=== PATIENT | male | born 1975 | race Caucasian/White ===

== ENCOUNTER 2020-07-27 19:17 | Emergency (ER) | payer OTHER ==
[2020-07-27 19:39] VITALS: BP 122/86; PULSE 110; TEMP 98.5; BMI 28.2
[2020-07-27] MEDS ORDERED: ACETAMINOPHEN 325 MG TABLET (FP) PO ONE (20:46)
[2020-07-27] MEDS ORDERED: ACETAMINOPHEN 325 MG TABLET (FP) ONE (21:01)
[2020-07-27] MEDS ORDERED: METHOCARBAMOL 500 MG TABLET PO ONE (21:53)
[2020-07-27] MEDS ORDERED: KETOROLAC TROMETHAMINE 30 MG/1 ML VIAL IM ONE (21:59)
[2020-07-27] MEDS ORDERED: KETOROLAC TROMETHAMINE 60 MG/2 ML VIAL IM ONE (21:59)
[2020-07-27] MEDS ORDERED: DIPHTH,PERTUSS(ACELL),TET 0.5 ML DISP.SYRIN IM ONE ×3 (22:24→22:53)
[2020-07-27] MEDS ORDERED: KETOROLAC TROMETHAMINE 60 MG/2 ML VIAL ONE (22:27)
[2020-07-27] MEDS ORDERED: METHOCARBAMOL 500 MG TABLET ONE (22:27)
== END 2020-07-27 23:16 | disposition home or self-care (01) ==
LOC: JER 19:17
PROC: 2W3HX1Z Immobilization of Left Thumb using Splint (ICD-10-PCS; principal; 2020-07-27)
PROC: 3E0234Z Introduction of Serum, Toxoid and Vaccine into Muscle, Percutaneous Approach (ICD-10-PCS; 2020-07-27)
PROC: 3E0233Z Introduction of Anti-inflammatory into Muscle, Percutaneous Approach (ICD-10-PCS; 2020-07-27)
DX: M79.645 Pain in left finger(s) (principal); S50.812A Abrasion of left forearm, initial encounter
CPT/HCPCS: 73090-TC-LT-FY; 73110-TC-LT-FY; 73130-TC-LT-FY; 90715; 93005; 93010; 99285-25